=== PATIENT | male | born 1955 | race Caucasian/White ===

== ENCOUNTER 2018-11-04 10:30 | Outpatient (CLI) | payer OTHER ==
[~2018-11-04] VITALS: Ht 177.8 cm; Wt 90.7 kg
[~2018-11-04 10:30] MED LIST: ASP81TEC PO; CALCIUM PO; DICL50TA6 PO; FISH OIL PO; FOLIC ACID PO; GARL200T PO; PRAV40TA PO
[2018-11-04] MEDS ORDERED: PRAV40TA PO (10:56)
== END 2018-11-04 13:21 | disposition home or self-care (01) ==
LOC: PREOP 10:30
PROVIDERS: ATTEND Internal Medicine
DX: Z01.818 Encounter for other preprocedural examination (principal)

== ENCOUNTER 2018-11-07 07:28 | Day surgery (SDC) | payer OTHER ==
--- NOTE | 2018-10-09 17:07 | HISTORY AND PHYSICAL ---
DATE OF SERVICE: COLONOSCOPY HISTORY AND PHYSICAL HISTORY OF PRESENT ILLNESS: The patient is a 63-year-old white male seen for yearly wellness evaluation on 10/08/2018. He has had a past history of colonic adenomas and was due for a screening colonoscopy. He reports last week he had an episode of painless bright red blood per rectum relatively small volume and was not associated with constipation or bowel habit change. He states that he has been feeling well and came in with home blood pressure record since I last saw him over a year ago. He does have a history of significant white coat hypertension, but blood pressure averages remain normal at home over the last 6 months of average 125/84 with an average heart rate of 79. He states that he feels well. He walks at least a mile a day with his dog. During the summer, he bikes and gets more intensive physical therapy predominantly biking, but curtail since during the winter months. He states that he feels well and voices no complaints. PAST MEDICAL HISTORY: Noncontributory other than the personal history of colonic adenomas. Last colonoscopy was in 2014, at which time he had one moderate size flat 5 x 6 mm tubular adenoma removed from the proximal transverse colon. 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 PAST SURGICAL HISTORY: Significant for spinal fusion surgery T10-L3 in 1980 following traumatic back fracture. He had bunion surgery in 1990 and had a benign lymph node biopsy in 1987. FAMILY HISTORY: He is not aware of any family history for GI tract malignancy. PHYSICAL EXAMINATION: GENERAL: Reveals a well-appearing white male, in no acute distress. VITAL SIGNS: Blood pressure per his usual was significantly higher in the office and at home. Initially when he first walked in was 156/110. It was down to 150/98 at the end of the interview. Weight was up 7 pounds from 16 months ago at 213.8. HEENT: Unremarkable. He is a Mallampati class 2 oropharyngeal configuration. NECK: Revealed no JVD, adenopathy or bruits. Sclerae nonicteric. Ear canals are clear with normal TMs. CHEST: Clear to auscultation. CARDIOVASCULAR: Revealed a regular rate and rhythm without murmur, S3 or S4. ABDOMEN: Soft, supple without mass, organomegaly or tenderness. EXTREMITIES: Reveal no cyanosis, clubbing or edema. SKIN: Evaluation reveals no suspicious nevi. RECTAL: Examination was deferred at the time of the procedure. ASSESSMENT AND PLAN: 1. Unremarkable wellness exam with history of white coat hypertension. Continue home monitoring. Home blood pressures have been normal as noted above. Healthy eating and exercise habits. 2. History of colonic adenomas. The patient is set up for screening colonoscopy on 10/24/2018. Prep instructions with the Suprep kit were given and questions answered. We will be calling the patient again for yearly wellness evaluation. Blood tests were obtained including chemistry panel and CBC considering recent bright red blood per rectum. The patient does not wish after discussion to undergo prostate cancer screening/PSA monitoring, other than digital rectal evaluation. Job ID: [id number] DocumentID: [id number] Dictated Date: 10/08/2018 16:17:42 Commercial Lines Account Manager Date: 10/08/2018 17:40:40 Dictated By: DEION CHUN MD MTDD
[~2018-11-07] VITALS: Ht 177.8 cm; Wt 90.7 kg
[2018-11-07] MEDS ORDERED: D5 LR IV SOLUTION 1,000 ML IV ONE (07:35)
--- OUTSIDE RECORDS SUMMARY | 2018-11-07 07:39 | XMS REPORT | Continuity of Care Document ---
Author Author [facility] Organization [facility] Address Unknown Phone Unavailable Allergies Active Description Code Type Severity Reaction Onset Reported/Identified Relationship to Patient Clinical Status Yes No Known Drug Allergies [id number] Drug Allergy Unknown N/A 05/08/2011 Medications There is no data. Problems Date Dx Coded Attending Type Code Diagnosis Diagnosed By 05/08/2011 Ot 211.3 BENIGN NEOPLASM LG BOWEL 05/08/2011 Ot 211.4 BENIGN NEOPL RECTUM/ANUS 05/08/2011 Ot V16.0 FAMILY HX-GI MALIGNANCY 05/08/2011 Ot V18.51 FAMILY HISTORY, COLONIC POLYPS 05/08/2011 Ot V76.51 SCREEN MAL NEOP-COLON 07/08/2012 Ot 211.3 BENIGN NEOPLASM LG BOWEL 07/08/2012 Ot 569.3 RECTAL ANAL HEMORRHAGE 12/31/2014 DEION CHUN MD Ot 211.3 BENIGN NEOPLASM LG BOWEL 12/31/2014 DEION CHUN MD Ot 448.9 CAPILLARY DIS NEC/NOS 12/31/2014 DEION CHUN MD Ot 569.3 RECTAL ANAL HEMORRHAGE 01/04/2015 Ot V72.84 01/04/2015 DEION CHUN MD Ot V72.84 01/04/2015 Ot V72.84 01/04/2015 DEION CHUN MD Ot V72.84 03/21/2015 DEION CHUN MD Ot 724.4 04/15/2015 Ot V72.84 04/15/2015 DEION CHUN MD Ot V72.84 04/15/2015 DEION CHUN MD Ot 724.4 04/26/2015 AUSTIN SHAIKH DO Ot 722.10 04/26/2015 AUSTIN SHAIKH DO Ot V57.1 05/20/2015 AUSTIN SHAIKH DO Ot 722.10 LUMBAR DISC DISPLACEMENT 05/20/2015 AUSTIN SHAIKH DO Ot V57.1 PHYSICAL THERAPY NEC 08/11/2015 Ot V72.84 08/11/2015 ADIEL FERGUSON, DEION Jarrell Ot V72.84 08/11/2015 DEION CHUN MD Ot 724.4 08/21/2016 Ot V72.84 EXAM PRE- OPERATIVE NOS 08/21/2016 ADIEL FERGUSON, DEION Jarrell Ot V72.84 EXAM PRE-OPERATIVE NOS 08/21/2016 ADIEL FERGUSON, DEION Jarrell Ot 724.4 LUMBOSACRAL NEURITIS NOS 08/26/2017 Ot V72.84 EXAM PRE- OPERATIVE NOS 08/26/2017 ADIEL FERGUSON, DEION Jarrell Ot V72.84 EXAM PRE-OPERATIVE NOS 08/26/2017 ADIEL FERGUSON, DEION Jarrell Ot 724.4 LUMBOSACRAL NEURITIS NOS 09/03/2018 ADIEL FERGUSON, DEION Jarrell Ot V72.84 EXAM PRE-OPERATIVE NOS 09/03/2018 ADIEL FERGUSON, DEION Jarrell Ot 724.4 LUMBOSACRAL NEURITIS NOS 10/09/2018 ADIEL FERGUSON, DEION Jarrell Ot V72.84 EXAM PRE-OPERATIVE NOS 10/09/2018 ADIEL FERGUSON, DEION Jarrell Ot 724.4 LUMBOSACRAL NEURITIS NOS 11/04/2018 DEION CHUN MD Ot Z01.818 ENCOUNTER FOR OTHER PREPROCEDURAL EXAMIN 11/04/2018 DEION CHUN MD Ot Z01.818 ENCOUNTER FOR OTHER PREPROCEDURAL EXAMIN Procedures There is no data. Results There is no data. Encounters ACCT No. Visit Date/Time Discharge Status Pt. Type Provider Facility Loc./Unit Complaint [id number] 11/04/2018 10:30:00 11/04/2018 13:21:00 DIS Outpatient DEION CHUN MD [facility] PREOP COLONOSCOPY [id number] 05/09/2015 15:35:00 05/20/2015 14:09:00 DIS Outpatient AUSTIN SHAIKH DO [facility] REHAB LUMBAR RADICULOPATHY;HERNIATED LUMBAR DISC [id number] 02/23/2015 12:07:00 02/23/2015 23:59:59 CLS Outpatient DEION CHUN MD [facility] RAD ACUTE SI RADICULOPATHY, NUMBNESS [id number] 12/31/2014 08:29:00 12/31/2014 11:05:00 DIS Outpatient DEION CHUN MD [facility] SDC RECTAL BLEEDING [id number] 12/29/2014 11:45:00 12/29/2014 23:59:59 CLS Outpatient DEION CHUN MD [facility] PREOP RECTAL BLEEDING [id number] 11/07/2018 07:28:00 ACT Outpatient DEION CHUN MD [facility] ENDO SCREENING [id number] 07/08/2012 07:09:00 Document Registration [id number] 07/07/2012 07:39:00 Document Registration [id number] 05/08/2011 07:35:00 Document Registration
[2018-11-07] MEDS ORDERED: D5 LR IV SOLUTION 1,000 ML IV STA (07:52)
[2018-11-07 07:55] VITALS: BP 133/92
[2018-11-07] MEDS ORDERED: MIDAZOLAM 2 MG/2 ML (VERSED) VIAL ONE ×3 (08:00→08:36)
[2018-11-07] MEDS ORDERED: fentaNYL INJECTION 100 MCG/2 ML AMP IVP ONE (08:00)
[2018-11-07] MEDS ORDERED: LIDOCAINE JELLY 2% 6 ML SYRINGE ONE (08:00)
[2018-11-07] MEDS ORDERED: LIDOCAINE JELLY 2% 6 ML SYRINGE MM PRN (08:00)
[2018-11-07] MEDS ORDERED: MIDAZOLAM 2 MG/2 ML (VERSED) VIAL IVP ONE (08:00)
[2018-11-07] MEDS ORDERED: fentaNYL INJECTION 100 MCG/2 ML AMP ONE (08:00)
--- NOTE | 2018-11-07 08:07 | Pre-Op Note & Conscious Sedat ---
Pre-Operative Progress Note H&P Reviewed The H&P was reviewed, patient examined and no changes noted. Date H&P Reviewed: Nov 07, 2018 Time H&P Reviewed: 08:06 Conscious Sedation Pre-Proced ASA Score 2 For ASA 3 and 4: Consider anesthesia and medical clearance. Also, for patients with a history of failed moderate sedation consider anesthesia. Airway Lungs Heart ASA score ASA 1: a normal healthy patient ASA 2: a patient with a mild systemic disease (mid diabetes, controlled hypertension, obesity ASA 3: a patient with a severe systemic disease that limits activity (angina , COPD, prior Myocardial infarction) ASA 4: a patient with an incapacitating disease that is a constant threat to life (CHF, renal failure) ASA 5: a moribund patient not expected to survive 24 hrs. (ruptured aneurysm) ASA 6: a declared brain- patient whose organs are being harvested. For emergent operations, add the letter E after the classification Mallampati Classification Grade 2 Sedation Plan Analgesia, Amnesia, Plan communicated to team members, Discussed options with patient/fam, Discussed risks with patient/fam The patient is an appropriate candidate to undergo the planned procedure, sedation, and anesthesia. The patient immediately re-assessed prior to indication. DEION CHUN MD Nov 07, 2018 08:07
[2018-11-07 09:10] VITALS: BP 150/70
[2018-11-07 10:06] VITALS: BP 148/89
[2018-11-07 10:07] VITALS: BP 148/89
--- NOTE | 2018-11-07 15:15 | OPERATIVE REPORT ---
DATE OF SERVICE: COLONOSCOPY SUMMARY INDICATION FOR THE PROCEDURE: Colonoscopy was performed due to past history of colon polyps and a family history of second degree relatives with colon cancer. The patient was placed in left lateral decubitus position. Prior to undergoing colonoscopy, digital rectal evaluation was performed. Anal sphincter tone was normal and the perianal reflexes intact. Prostate is mild to moderately enlarged, anodular and nontender on digital inspection. No other abnormalities or no additional inspection of anal canal or distal rectal vault. The colonoscope was then inserted into the rectum under direct visualization, advanced to cecum. The cecum was identified by identification of the ileocecal valve and cecal strap. Photographic documentation was obtained. Careful inspection was made as the colonoscope was withdrawn. FINDINGS: There is no evidence for internal or external hemorrhoids and the rectum, sigmoid colon, descending colon, splenic flexure, transverse colon were unremarkable. A small 3 x 4 mm sessile appearing polyp was noted at the hepatic flexure, was biopsied and ablated, submitted for histopathology with no blood loss. The ascending colon and cecum and the colon were unremarkable. ASSESSMENT: 1. One diminutive polyp was removed from the hepatic flexure. We will await histopathology report before making further surveillance colonoscopic recommendation. 2. Digital evaluation of the prostate was compatible with mild to moderate BPH. No other abnormalities noted on today's procedure. The patient did have concerns that his blood sugar has been creeping up. He does meet criteria for insulin resistance as he has had some fasting sugars several, now above 100, the last one 120. He had also put on some weights. He has medical background and has concerns about progressing diabetes and want to know he is doing everything that he could. We did discuss the importance of diet and exercise, but he would also be a candidate for metformin. We briefly discussed side effects, but I needed to sit down with him in more detail when the medicine had worn off. An extra 10 minutes of time over and above colonoscopy issues was spent in discussing insulin resistance and diabetes. He will schedule an appointment with me sometime in the next month to come in and discuss options in more detail. Job ID: [id number] DocumentID: [id number] Dictated Date: 11/07/2018 10:44:19 Shelter Director Date: 11/07/2018 15:14:55 Dictated By: DEION CHUN MD
== END 2018-11-07 10:28 | disposition home or self-care (01) ==
LOC: ENDO 07:28
PROVIDERS: ATTEND Internal Medicine
DX: Z12.11 Encounter for screening for malignant neoplasm of colon (principal); D12.3 Benign neoplasm of transverse colon; N40.0 Benign prostatic hyperplasia without lower urinary tract symptoms; Z80.0 Family history of malignant neoplasm of digestive organs

== ENCOUNTER 2020-05-13 18:16 | Emergency (ER) | payer MEDICARE, OTHER ==
[~2020-05-13] VITALS: Ht 175 cm; Wt 94.6 kg
[2020-05-13 18:20] VITALS: BP 185/111
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
--- OUTSIDE RECORDS SUMMARY | 2020-05-13 18:21 | XMS REPORT ---
Author Author [employer] [facility] [employer] [facility] [place] Address [address] [address] Care Team Providers Care Entry Manager Name Role Phone AUSTIN SHAIKH Unavailable DEION CHUN Unavailable AUSTIN SHAIKH PCP Unavailable Allergies Allergy Reported Allergen(s) Allergy Type Date of Reaction(s) Care Facility Classificati Onset Provider on Unclassified No Known Drug Allergies DA 05-08-2011 DEION Owusu (18 sources) Available ([id number]) Encounters Encounter Date Encounter Type Encounter Diagnosis Care Provider Facility Start: Admission to day DE[facility] CHUN [place] [facility] 11-07-2018 surgery Work Phone: [facility] ([id number] ) End: 11-07-2018 Start: Patient encounter DEION CHUN MD Not Availa ble ([id number]) 11-07-2018 procedure End: 11-07-2018 Start: Patient encounter DEION CHUN Not Availab le ([id number]) 11-04-2018 procedure End: 11-04-2018 Start: Patient encounter DEION CHUN MD Not Availa ble ([id number]) 10-31-2018 procedure Start: Patient encounter DEION CHUN MD Not Availa ble ([id number]) 10-17-2018 procedure Start: Patient encounter AUSTIN SHAIKH DO Not Avai lable ([id number]) 05-09-2015 procedure End: 05-20-2015 Start: Patient encounter DEION CHUN MD Not Availa ble ([id number]) 02-23-2015 Start: Patient encounter DEION CHUN MD Not Availa ble ([id number]) 12-31-2014 procedure End: 12-31-2014 Start: Patient encounter DEION CHUN MD Not Availa ble ([id number]) 07-08-2012 procedure End: 07-08-2012 Start: Patient encounter DEION CHUN MD Not Availa ble ([id number]) 07-07-2012 NEGATED Pre-operative DEION CHUN MD Not Available ([id number]) examination, unspecified Encounter for other DEION CHUN MD Not Available ([phone]) preprocedural examination Medical Equipment No Information Goals No Information Immunizations Immunizatio Immunization Notes Care Provider Facility n Date vaccine ; AUSTIN SWEANEY [place] [facility] ([id number]) [vaccine] Interventions No Information Medications Medication Drug Dates Sig Sig (Original) Class(es) (Normalized) Aspirin (Aspirin Ec 81 End: Aspirin (Aspir in Ec 81 Mg) 81 Mg Tabec, Mg) 81 Mg Tabec, 81 Mg 12-31-2014 81 Mg Oral Jahaira ly Discontinued Oral (2 sources) Payers No Information Plan of Treatment The data below is from unstructured sources Prescriptions See Medication Section Discharge Date 11/07/18 10:28am Instructions/Education Provided [place] n Polyps (DC) Prescriptions See Medication Section Discharge Date 11/04/18 1:21pm Prescriptions See Medication Section Discharge Date 11/04/18 1:21pm Prescriptions See Medication Section Problems Problem Problem Date Last Documented Episodic/Chr Provider Classificati Recorded Date onic on Gastrointest Hemorrhage of rectum and anus Episodic DEION CHUN inal hemorrhage (4 sources) Hyperplasia Benign prostatic hyperplasia Chronic DEION CHUN of prostate without lower urinary tract MD (1 source) symptoms Other Care involving other physical Episodic AUSTIN aftercare therapy SWEANEY DO (3 sources) Other and Benign neoplasm of transverse colon Episodic DEION CHUN unspecified MD benign neoplasm (1 source) Other and Benign neoplasm of colon Episodic RADHA CHUN unspecified MD benign neoplasm (4 sources) Other Other and unspecified capillary Episodic DEION CHUN circulatory diseases MD disease (3 sources) Other Encounter for screening for Episodic DEION MENDEZON screening malignant neoplasm of colon MD for suspected conditions (not mental disorders or infectious disease) (1 source) Residual Family history of malignant Episodic DEION CHUN codes; neoplasm of digestive organs unclassified (1 source) Spondylosis; 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 SWEANEY DO al disc myelopathy disorders; other back problems (3 sources) Spondylosis; Thoracic or lumbosacral neuritis or Episodic DEION CHUN intervertebr radiculitis, unspecified MD al disc disorders; other back problems (3 sources) Procedures Date Procedure Procedure Detail Performing Cl inician Start: Colonoscopy DEION CHUN 11-07-2018 Results The data below is from unstructured sourcesNo known relevant diagnostic tests, laboratory data and/or discharge summary.No known relevant diagnostic tests, laboratory data and/or discharge summary.No known relevant diagnostic tests, laboratory data and/or discharge summary.No relevant diagnostic test, laboratory data and/or discharge summary information availab le.No relevant diagnostic test, laboratory data and/or discharge summary informa tion available.No relevant diagnostic test, laboratory data and/or discharge sum glenna information available.No relevant diagnostic test, laboratory data and/or d ischarge summary information available. Social History No Information Vital Signs The data below is from unstructured sources Vital Response Date/Time Temperature (Fahrenheit) 97.4 degree s F (97.6 - 99.5) Temperature (Calculated Celsius) 36. 53553 degrees C (36.4 - 37.5) Temperature Source Tympanic Pulse Rate (adult) 76 bpm (60 - 90) Respiratory Rate 18 bpm (12 - 24) O2 Sat by Pulse Oximetry 94 % (88 - 100) Blood Pressure 132/88 mm Hg Pain Pain Intensity 0 Height (Feet) 5 feet Height (Inches) 10.00 inches Height (Calculated Centimeters) 177. 834672 cm Weight (Pounds) 200 pounds Weight (Calculated Grams) 79836.475 gm Weight (Calculated Kilograms) 90.718 475 kilograms Calculated BMI 28.69 Vital Response Date/Time Temperature (Fahrenheit) 97.5 degree s F (97.6 - 99.5) 11/07/2018 10:07am Temperature (Calculated Celsius) 36. 60302 degrees C (36.4 - 37.5) 11/07/2018 10:07am Temperature Source Tympanic 11/07/2018 10:07am Pulse Rate (adult) 100 bpm (60 - 90) 11/07/2018 10:07am Respiratory Rate 20 bpm (12 - 24) 11/07/2018 10:07am O2 Sat by Pulse Oximetry 99 % (88 - 100) 11/07/2018 10:07am Blood Pressure 148/89 mm Hg 11/07/2018 10:07am Blood Pressure Mean 106 mm Hg (65 - 110) 11/07/2018 7:55am Pain Numeric Pain Scale 0-No Pain 11/07/2018 10:07am Pain Intensity 0 2018 10:06am Height (Feet) 5 feet 10/2018 7:58am Height (Inches) 10.00 inches 11/07/2018 7:58am Height (Calculated Centimeters) 177. 989183 cm 11/07/2018 7:58am Weight (Pounds) 200 pounds 11/07/2018 7:58am Weight (Ounces) 0.0 oz 0 11/07/2018 7:58am Weight (Calculated Grams) 64663.48 gm 11/07/2018 7:58am Weight (Calculated Kilograms) 90.718 475 kilograms 11/07/2018 7:58am Calculated BMI 28.7 0210/2018 7:58am Vital Response Date/Time Height (Feet) 5 feet 10:49am Height (Inches) 10.00 inches 11/04/2018 10:49am Height (Calculated Centimeters) 177. 544001 cm 11/04/2018 10:49am Weight (Pounds) 200 pounds 11/04/2018 10:49am Weight (Ounces) 0.0 oz 0 11/04/2018 10:49am Weight (Calculated Grams) 37081.48 gm 11/04/2018 10:49am Weight (Calculated Kilograms) 90.718 475 kilograms 11/04/2018 10:49am Calculated BMI 28.7 10/08 10:49am Vital Response Date/Time Height (Feet) 5 feet 10:49am Height (Inches) 10.00 inches 11/04/2018 10:49am Height (Calculated Centimeters) 177. 489864 cm 11/04/2018 10:49am Weight (Pounds) 200 pounds 11/04/2018 10:49am Weight (Ounces) 0.0 oz 0 11/04/2018 10:49am Weight (Calculated Grams) 72567.48 gm 11/04/2018 10:49am Weight (Calculated Kilograms) 90.718 475 kilograms 11/04/2018 10:49am Calculated BMI 28.7 10/08 10:49am Functional Status The data below is from unstructured sourcesNo functional status results.No functional status results.No functional status results.No functional status information available.No functional status information available.No functional status information available.No functional status inf ormation available. Mental Status No Information Advance Directives Directive Response Recor ded Date/Time Advance Directives No 9:12am Health Care Power of Tailings Worker No 12/31/14 9:12am Organ Donor Yes 12/31/14 9:12am Directive Response Recor ded Date/Time Advance Directives No 9:12am Health Care Power of Tailings Worker No 12/31/14 9:12am Organ Donor Yes 12/31/14 9:12am Resuscitation Status Full Code 12/31/14 9:12am Directive Response Recor ded Date/Time Advance Directives Yes 0 11/07/18 7:55am Health Care Power of Tailings Worker Yes 11/07/18 7:55am Organ Donor Yes 11/07/18 7:55am Resuscitation Status Full Code 11/07/18 7:55am Directive Response Recor ded Date/Time Advance Directives Yes 0 11/04/18 10:54am Health Care Power of Tailings Worker Yes 11/04/18 10:54am Organ Donor Yes 12/31/14 9:12am Resuscitation Status Full Code 11/04/18 10:54am Discharge Instructions No hospital discharge instructions.No hospital discharge instructions.No hospital discharge instruction information available.No hospital discharge instruction information available. Additional Source Comments This clinical document has been generated using [employer] software that has been certified by the Office of the National Coordinator for Health Information Technology (ONC 15.99.04.3023.Diam.31.00.0.860242) and the National Committee for Foundation Drill Operator (NCQA, as an eMeasure certified technology). FOR RECORDS PERTAINING TO PATIENTS WHO ARE OR HAVE BEEN ENROLLED IN A CHEMICAL D EPENDENCY/SUBSTANCE ABUSE PROGRAM, SOME INFORMATION MAY BE OMITTED. This clinica l summary was aggregated from multiple sources. Caution should be exercised in using it in the provision of clinical care. This summary normalizes information from multiple sources, and as a consequence, information in this document may ma terially change the coding, format and clinical context of patient data. In sheila tion, data may be omitted in some cases. CLINICAL DECISIONS SHOULD BE BASED ON T HE PRIMARY CLINICAL RECORDS. [facility], [facility]. provides no warranty or guara ntee of the accuracy or completeness of information in this document.The followi ng information is based on time limited clinical information
--- OUTSIDE RECORDS SUMMARY | 2020-05-13 18:21 | XMS REPORT | Continuity of Care Document ---
Author Organization Unknown Address Unknown Phone Unavailable Allergies Active Description Code Type Severity Reaction Onset Reported/Identified Relationship to Patient Clinical Status Yes No Known Drug Allergies [id number] Drug Allergy Unknown N/A 05/08/2011 Medications There is no data. 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 3 BENIGN NEOPLASM LG BOWEL 12/31/2014 DEION CHUN MD Ot 448. 9 CAPILLARY DIS NEC/NOS 12/31/2014 DEION CHUN MD Ot 569. 3 RECTAL ANAL HEMORRHAGE 01/04/2015 Ot V72.84 01/04/2015 DEION CHUN MD Ot V72. 84 01/04/2015 Ot V72.84 01/04/2015 DEION CHUN MD Ot V72. 84 03/21/2015 DEION CHUN MD Ot 724. 4 04/15/2015 Ot V72.84 04/15/2015 DEION CHUN MD Ot V72. 84 04/15/2015 DEION CHUN MD Ot 724. 4 04/26/2015 AUSTIN SHAIKH DO Ot 722.10 04/26/2015 AUSTIN SHAIKH DO Ot V57.1 05/20/2015 AUSTIN SHAIKH DO Ot 722.10 LUMBAR DISC DISPLACEMENT 05/20/2015 AUSTIN SHAIKH DO Ot V57.1 PHYSICAL THERAPY NEC 08/11/2015 Ot V72.84 08/11/2015 ADIEL FERGUSON, DEION Jarrell Ot V72. 84 08/11/2015 ADIEL FERGUSON, DEION Jarrell Ot 724. 4 08/21/2016 Ot V72.84 EXA M PRE- OPERATIVE NOS 08/21/2016 ADIEL FERGUSON, DEION Jarrell Ot V72. 84 EXAM PRE-OPERATIVE NOS 08/21/2016 ADIEL FERGUSON, DEION Jarrell Ot 724. 4 LUMBOSACRAL NEURITIS NOS 08/26/2017 Ot V72.84 EXA M PRE- OPERATIVE NOS 08/26/2017 ADIEL FERGUSON, DEION Jarrell Ot V72. 84 EXAM PRE-OPERATIVE NOS 08/26/2017 ADIEL FERGUSON, DEION Jarrell Ot 724. 4 LUMBOSACRAL NEURITIS NOS 09/03/2018 ADIEL FERGUSON, DEION Jarrell Ot V72. 84 EXAM PRE-OPERATIVE NOS 09/03/2018 ADIEL FERGUSON, DEION Jarrell Ot 724. 4 LUMBOSACRAL NEURITIS NOS 10/09/2018 ADIEL FERGUSON, DEION Jarrell Ot V72. 84 EXAM PRE-OPERATIVE NOS 10/09/2018 ADIEL FERGUSON, DEION Jarrell Ot 724. 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 0 BENIGN PROSTATIC HYPERPLASIA WITHOUT LOW 11/07/2018 DEION CHUN MD Ot Z12. 11 ENCOUNTER FOR SCREENING FOR MALIGNANT NE 11/07/2018 DEION CHUN MD Ot Z80. 0 FAMILY HISTORY OF MALIGNANT NEOPLASM OF Procedures There is no data. Results There is no data. Encounters ACCT No. Visit Date/Time Discharge Status Pt. Type Provider Facility Loc./Unit Complaint [id number] 11/07/2018 07:28:00 019 10:28:00 DIS Outpatient DEION CHUN MD [facility] ENDO SCREENING [id number] 11/04/2018 10:30:00 019 13:21:00 DIS Outpatient DEION CHUN MD [facility] PREOP COLONOSCOPY [id number] 05/09/2015 15:35:00 015 14:09:00 DIS Outpatient AUSTIN SHAIKH DO [facility] REHAB LUMBAR RADICULOPATHY;HE RNIATED LUMBAR DISC [id number] 02/23/2015 12:07:00 015 23:59:59 CLS Outpatient DEION CHUN MD [facility] RAD ACUTE SI RADICULOPATHY, NUMBNESS [id number] 12/31/2014 08:29:00 015 11:05:00 DIS Outpatient DEION CHUN MD [facility] SDC RECTAL BLEEDING [id number] 12/29/2014 11:45:00 015 23:59:59 CLS Outpatient DEION CHUN MD [facility] PREOP RECTAL BLEEDING [id number] 05/13/2020 18:17:[address] Emergency PERCY VIEIRA MD [facility] ER DOG SCRATCH - L LEG [id number] 07/08/2012 07:09:00 Document Registration [id number] 07/07/2012 07:39:00 Document Registration [id number] 05/08/2011 07:35:00 Document Registration
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
== END 2020-05-13 18:54 | disposition home or self-care (01) ==
LOC: EDUNIT# 18:16 → ER 18:17
DX: S80.812A Abrasion, left lower leg, initial encounter (principal); E78.00 Pure hypercholesterolemia, unspecified; Z85.828 Personal history of other malignant neoplasm of skin; W54.8XXA Other contact with dog, initial encounter

== ENCOUNTER 2020-10-25 18:26 | Emergency (ER) | payer MEDICARE, OTHER ==
[~2020-10-25] VITALS: Ht 175.3 cm; Wt 92.9 kg
[2020-10-25] MEDS ORDERED: ADENOSINE 6 MG/2 ML (ADENOCARD) VIAL IV ONE ×3 (18:38→19:00)
[2020-10-25] MEDS ORDERED: dilTIAZem DRIP PRE-MIX 125 ML IV ONE (18:42)
[2020-10-25 18:56] LABS: BASOPHILS % (AUTO) 0 % (0-10); EOSINOPHILS # (AUTO) 0.1 10^3/uL (0.0-0.3); EOSINOPHILS % (AUTO) 1 % (0-10); HEMATOCRIT 46 % (40-54); HEMOGLOBIN 14.4 g/dL (13.3-17.7); LYMPHOCYTES # (AUTO) 2.9 10^3/uL (1.0-4.0); LYMPHOCYTES % (AUTO) 41 % (12-44); MEAN CORPUSCULAR HEMOGLOBIN 25 pg (25-34); MEAN CORPUSCULAR HGB CONC 32 g/dL (32-36); MEAN CORPUSCULAR VOLUME 80 fL (80-99); MEAN PLATELET VOLUME 11.3 fL (9.0-12.2); MONOCYTES # (AUTO) 0.7 10^3/uL (0.0-1.0); MONOCYTES % (AUTO) 10 % (0-12); NEUTROPHILS # (AUTO) 3.4 10^3/uL (1.8-7.8); NEUTROPHILS % (AUTO) 49 % (42-75); PLATELET COUNT 210 10^3/uL (130-400)
--- NOTE | 2020-10-25 18:57 | ED Cardiac General ---
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 Over the past few weeks he has had some episodes of palpitations and irregular heartbeat. No known history of arrhythmia. Timing/Duration: changing over time Severity: moderate Activities at Onset: none Prior CP/Workup: no prior chest pain NTG SL OTR OWNER OPERATOR: No ASA po OTR OWNER OPERATOR: No Allergies and Home Medications Allergies Coded Allergies: No Known Drug Allergies (Unverified , 05/08/11) Home Medications Pravastatin Sodium 40 Mg Tablet, 40 MG PO DAILY, (Reported) Patient Home Medication List Home Medication List Reviewed: Yes Review of Systems Review of Systems Constitutional: see HPI EENTM: No Symptoms Reported Respiratory: No Symptoms Reported Cardiovascular: See HPI; Denies Chest Pain; Irregular Heart Rate, Palpitations Gastrointestinal: No Symptoms Reported Genitourinary: No Symptoms Reported Musculoskeletal: no symptoms reported Skin: no symptoms reported Psychiatric/Neurological: No Symptoms Reported Endocrine: No Symptoms Reported Past Wlzwlpm-Uttbez-Gmphxp Hx Patient Social History Alcohol Use: Occasionally Uses Smoking Status: Never a Smoker Recent Hopitalizations: No Immunizations Up To Date Tetanus Booster (TDap): Unknown PED Vaccines UTD: Yes Date of Influenza Vaccine: Jul 14, 2018 Seasonal Allergies Seasonal Allergies: No Past Medical History Surgeries: Yes (BACK, CARPAL TUNNEL BILAT) Respiratory: No Cardiac: Yes High Cholesterol Neurological: No Sexually Transmitted Disease: No HIV/AIDS: No Genitourinary: No Gastrointestinal: Yes Polyps Musculoskeletal: Yes (ARTHRITIS; FEET) Arthritis Endocrine: No HEENT: Yes (GLASSES) Loss of Vision: Bilateral Hearing Impairment: Hard of Hearing, Bilateral Hearing Aide Cancer: Yes (BASAL CELL) Skin Psychosocial: No Integumentary: No Blood Disorders: No Adverse Reaction/Blood Tranf: No (HAS HAD BLOOD WITH NO REACTION) Physical Exam Vital Signs Vital Signs - First Documented 10/25/20 18:34 Pulse 154 Resp 20 B/P (MAP) 184/111 (135) Pulse Ox 99 O2 Delivery Room Air Capillary Refill : Less Than 3 Seconds Height, Weight, BMI Height: 5'10.00" Weight: 200lbs. 0.0oz. [id number]; 30.00 BMI Method: General Appearance: No Apparent Distress, WD/WN Respiratory: No Accessory Muscle Use, No Respiratory Distress Cardiovascular: Irregularly Irregular, Tachycardia (Narrow complex tachycardia irregularly irregular rate of 150-160.) Gastrointestinal: Non Tender, Soft Extremity: Normal Capillary Refill, Normal Inspection Neurologic/Psychiatric: Alert, Oriented x3 Skin: Normal Color, Warm/Dry Progress/Results/Core Measures Results/Orders Lab Results Laboratory Tests Test 10/25/20 18:42 Range/Units White Blood Count 7.0 4.3-11.0 10^3/uL Red Blood Count 5.70 H 4.30-5.52 10^6/uL Hemoglobin 14.4 13.3-17.7 g/dL Hematocrit 46 40-54 % Mean Corpuscular Volume 80 80-99 fL Mean Corpuscular Hemoglobin 25 25-34 pg Mean Corpuscular Hemoglobin Concent 32 32-36 g/dL Red Cell Distribution Width 14.9 H 10.0-14.5 % Platelet Count 210 130-400 10^3/uL Mean Platelet Volume 11.3 9.0-12.2 fL Immature Granulocyte % (Auto) 0 % Neutrophils (%) (Auto) 49 42-75 % Lymphocytes (%) (Auto) 41 12-44 % Monocytes (%) (Auto) 10 0-12 % Eosinophils (%) (Auto) 1 0-10 % Basophils (%) (Auto) 0 0-10 % Neutrophils # (Auto) 3.4 1.8-7.8 10^3/uL Lymphocytes # (Auto) 2.9 1.0-4.0 10^3/uL Monocytes # (Auto) 0.7 0.0-1.0 10^3/uL Eosinophils # (Auto) 0.1 0.0-0.3 10^3/uL Basophils # (Auto) 0.0 0.0-0.1 10^3/uL Immature Granulocyte # (Auto) 0.0 0.0-0.1 10^3/uL Prothrombin Time 13.4 12.2-14.7 SEC INR Comment 1.0 0.8-1.4 Activated Partial Thromboplast Time 27 24-35 SEC Sodium Level 138 135-145 MMOL/L Potassium Level 3.8 3.6-5.0 MMOL/L Chloride Level 104 98-107 MMOL/L Carbon Dioxide Level 24 21-32 MMOL/L Anion Gap 10 5-14 MMOL/L Blood Urea Nitrogen 13 7-18 MG/DL Creatinine 1.18 0.60-1.30 MG/DL Estimat Glomerular Filtration Rate > 60 BUN/Creatinine Ratio 11 Glucose Level 129 H 70-105 MG/DL Calcium Level 9.2 8.5-10.1 MG/DL Corrected Calcium 8.8 8.5-10.1 MG/DL Magnesium Level 2.3 1.6-2.4 MG/DL Total Bilirubin 0.6 0.1-1.0 MG/DL Aspartate Amino Transf (AST/SGOT) 23 5-34 U/L Alanine Aminotransferase (ALT/SGPT) 28 0-55 U/L Alkaline Phosphatase 67 40-136 U/L Myoglobin 52.2 10.0-92.0 NG/ML Troponin I < 0.028 <0.028 NG/ML Total Protein 7.5 6.4-8.2 GM/DL Albumin 4.5 3.2-4.5 GM/DL My Orders Orders - JAIMIE FREY MOBILE UNIT ASSISTANT Cbc With Automated Diff (10/25/20 18:48) Magnesium (10/25/20 18:48) Chest 1 View, Ap/Pa Only (10/25/20 18:48) Ekg Tracing (10/25/20 18:48) Comprehensive Metabolic Panel (10/25/20 18:48) Myoglobin Serum (10/25/20 18:48) Protime With Inr (10/25/20 18:48) Partial Thromboplastin Time (10/25/20 18:48) O2 (10/25/20 18:48) Monitor-Rhythm Ecg Trace Only (10/25/20 18:48) Lipid Panel (10/26/20 06:00) Ed Iv/Invasive Line Start (10/25/20 18:48) Aspirin Chewable Tablet (Baby Aspirin Ch (10/25/20 19:00) Apixaban Tablet (Eliquis Tablet) (10/25/20 19:00) Diltiazem Injection (Cardizem Injection) (10/25/20 19:00) Diltiazem Drip Pre-Mix (Cardizem Drip Pr (10/25/20 19:00) Troponin I (10/25/20 18:42) Adenosine Injection (Adenocard Injection (10/25/20 19:00) Ns Iv 1000 Ml (Sodium Chloride 0.9%) (10/25/20 19:45) Medications Given in ED Current Medications Medications Dose Ordered Sig/Swati Route Start Time Stop Time Status Last Admin Dose Admin Adenosine 6 mg ONCE ONCE IV 10/25/20 19:00 10/25/20 19:01 DC 10/25/20 18:44 6 MG Apixaban 5 mg ONCE ONCE PO 10/25/20 19:00 10/25/20 19:01 DC 10/25/20 19:16 5 MG Aspirin 324 mg ONCE ONCE PO 10/25/20 19:00 10/25/20 19:01 DC 10/25/20 19:17 324 MG Diltiazem HCl 10 mg ONCE ONCE IVP 10/25/20 19:00 10/25/20 19:01 DC 10/25/20 18:47 10 MG Vital Signs/I&O 10/25/20 18:34 Pulse 154 Resp 20 B/P (MAP) 184/111 (135) Pulse Ox 99 O2 Delivery Room Air Departure Communication (Admissions) With Dr. Sullivan and Dr. Espitia. We have no ICU beds available at this time so we will keep the patient here in the emergency room until a bed opens up. Currently Cardizem drip is at 15 mg an hour he has received 5 mg of Eliquis and 324 mg of aspirin. He is without chest pain or shortness of breath. Impression Primary Impression: New onset atrial fibrillation Additional Impression: Atrial fibrillation with RVR Disposition: HOME, SELF-CARE Condition: Stable Departure-Patient Inst. Referrals: DEION CHUN MD (PCP/Family) Primary Care Physician JAIMIE FREY APRN Oct 25, 2020 18:57
[2020-10-25] MEDS ORDERED: dilTIAZem DRIP PRE-MIX 125 ML IV SCH (19:00)
[2020-10-25] MEDS ORDERED: APIXABAN 5 MG (ELIQUIS) TABLET PO ONE (19:00)
[2020-10-25] MEDS ORDERED: ASPIRIN 81 MG CHEW (CHILDREN'S ASA) PO ONE (19:00)
[2020-10-25 19:01] LABS: ALBUMIN 4.5 GM/DL (3.2-4.5); CHLORIDE 104 MMOL/L (98-107); POTASSIUM 3.8 MMOL/L (3.6-5.0); PROTHROMBIN TIME PATIENT 13.4 SEC (12.2-14.7); SODIUM 138 MMOL/L (135-145)
[2020-10-25 19:02] LABS: CALCIUM 9.2 MG/DL (8.5-10.1)
[2020-10-25 19:03] LABS: GLUCOSE 129 MG/DL (70-105); TOTAL PROTEIN 7.5 GM/DL (6.4-8.2)
[2020-10-25 19:04] LABS: CARBON DIOXIDE 24 MMOL/L (21-32)
[2020-10-25 19:05] LABS: BILIRUBIN,TOTAL 0.6 MG/DL (0.1-1.0)
[2020-10-25 19:06] LABS: ALKALINE PHOSPHATASE 67 U/L (40-136)
[2020-10-25 19:07] LABS: CREATININE SERUM 1.18 MG/DL (0.60-1.30); GFR ESTIMATED > 60
[2020-10-25 19:08] LABS: BUN/CREATININE RATIO 11
[2020-10-25 19:09] LABS: ALANINE AMINOTRANSFERASE 28 U/L (0-55); MAGNESIUM 2.3 MG/DL (1.6-2.4)
--- NOTE | 2020-10-25 19:17 | Diagnostic Imaging Report ---
INDICATION: Tachycardia. Denies history of atrial fibrillation or SVT. Denies chest pain. FINDINGS: Frontal view of the chest demonstrates the lungs to be clear. The heart, mediastinum and pulmonary vascularity are normal. Postoperative changes are present to the spine. IMPRESSION: There are no acute findings. Dictated by: Dictated on workstation # [id number]
--- NOTE | 2020-10-25 19:42 | NUR ---
PT TO HOLD IN ER NO ICU BEDS AVAILABLE UNTIL POSSIBLY MORNING. ER CART EXCHANGED FOR INPATIENT BED AND PT PROVIDED ANIBAL LUIS.
[2020-10-25] MEDS ORDERED: NS IV 1000 ML 1,000 ML IV SCH (19:45)
--- NOTE | 2020-10-25 20:31 | NUR ---
HR DECREASED AND NOTED TO APPEAR TO BE IN NSR/ST ON BEDSIDE MONITOR. Radha FREY APRN NOTIFIED AND EKG OBTAINED.
[2020-10-25] MEDS ORDERED: dilTIAZem120 MG (CARDIZEM CD) CAP PO SCH ×2 (20:45→21:15)
[2020-10-25] MEDS ORDERED: APIX5TAB PO (22:05)
[2020-10-25] MEDS ORDERED: DILT240C90 PO (22:05)
[2020-10-25 22:11] VITALS: BP 139/82
[2020-10-26] MEDS ORDERED: dilTIAZem120 MG (CARDIZEM CD) CAP PO SCH (09:00)
== END 2020-10-25 22:11 | disposition home or self-care (01) ==
LOC: EDUNIT# 18:26 → ER 18:28
DX: I48.20 Chronic atrial fibrillation, unspecified (principal); E78.00 Pure hypercholesterolemia, unspecified; Z85.828 Personal history of other malignant neoplasm of skin
CPT/HCPCS: 36415; 71045; 80053; 83735; 83874; 84484; 85025; 85610; 85730; 93005; 93041

== ENCOUNTER → 2020-11-01 | Outpatient (CLI) | payer MEDICARE, OTHER ==
[~2020-11-01] VITALS: Ht 175 cm; Wt 94.0 kg
[~2020-11-01] MED LIST changes: +APIX5TAB PO; +DILT240C90 PO; +REGADENOSON 0.4 MG/5 ML SYR (LEXISCAN) IV ONE
[2020-11-01] MEDS: CATHETER FLUSH 10 ML SYR IV PRN ×2 (08:30→09:29)
[2020-11-01 09:21] VITALS: BP 161/102
--- NOTE | 2020-11-01 16:09 | STRESS TEST ---
DATE OF SERVICE: 11/01/2020 RESTING AND POST REGADENOSON TECHNETIUM-99M TETROFOSMIN SPECT CT IMAGING ORDERING PHYSICIAN: Dr. Vigil. PRIMARY PHYSICIAN: Dr. Ortega. CLINICAL DIAGNOSIS: Palpitations. FINDINGS: Baseline images were carried out after injection of 10 mCi of technetium-99m Tetrofosmin. This was followed by 0.4 mg Regadenoson and 30 mCi of technetium-99 Tetrofosmin for stress imaging. The electrocardiogram showed sinus rhythm at baseline. It did not change significantly with the Regadenoson infusion. Review of images at rest and following stress does not indicate any distinct perfusion defects with significant myocardial ischemia or infarction. Some degree of diaphragmatic attenuation was seen both at rest and following Regadenoson infusion. Gated images show normal global left ventricular systolic function with normal regional wall motion, including the diaphragmatic wall of the left ventricle. Left ventricular ejection fraction is calculated to be 79%. Left ventricular end diastolic volume is 62 mL. TID is absent (1.05). CONCLUSIONS: 1. No evidence of significant myocardial ischemia or infarction on this study. 2. Normal regional wall motion. 3. Normal to hyperdynamic left ventricular systolic function with an ejection fraction of . Job ID: [id number] DocumentID: [id number] Dictated Date: 11/01/2020 13:49:41 Animal Rehabilitator Date: 11/01/2020 16:08:24 Dictated By: KESHAV VIGIL MD, MA, FACP, FACC,
== END ==
LOC: CARD 08:30
PROVIDERS: ATTEND Internal Medicine Cardiovascular Disease
DX: R00.2 Palpitations (principal)
CPT/HCPCS: 78452; 93017; A9502

== ENCOUNTER → 2020-11-03 | Outpatient (CLI) | payer MEDICARE, OTHER ==
[~2020-11-03] MED LIST changes: -REGADENOSON 0.4 MG/5 ML SYR (LEXISCAN) IV ONE
== END ==
LOC: CARD 09:00
PROVIDERS: ATTEND Internal Medicine Cardiovascular Disease
DX: R00.2 Palpitations (principal)
CPT/HCPCS: 93306

== ENCOUNTER → 2022-05-07 | Outpatient (CLI) | payer MEDICARE, OTHER ==
--- NOTE | 2022-05-07 10:31 | Diagnostic Imaging Report ---
PROCEDURE: MRI left joint lower extremity without contrast. TECHNIQUE: Multiplanar, multisequence non contrast-enhanced MRI of the left lower extremity was accomplished. INDICATION: Left hip pain, possible contusion. EXAMINATion: Left lower extremity MRI without contrast 05/07/2022. FINDINGS: There is diffuse abnormal signal intensity with T2 hyperintensity noted throughout the left sacral alar. A superimposed vertical hypointense line on both T1 and T2-weighted imaging consistent with an insufficiency fracture. A nonspecific area of hypointensity is seen centered along the adjacent left sacroiliac joint extending into the ilium which is diffusely hypointense on T1 and T2-weighted imaging. Focal sclerosis is possible but CT imaging could provide better characterization. Additionally, there is diffuse edema throughout the left superior and inferior pubic rami extending to the anterior left acetabulum. Findings likely due to underlying fractures. Surrounding soft tissue edema is noted. There is diffuse linear edema within the abductor musculature on the left. This is likely reactive muscular strain. Within the remaining osseous structures degenerative changes noted within the visualized lumbar spine. The hip joint spaces intact and symmetric with no significant joint effusions appreciated. The hamstrings tendon origins bilaterally intact. Tendinous insertion at the greater trochanter appears intact. Minimal adjacent edema is noted within the distal lateral luteal musculature likely due to a strain with similar findings to lesser degree noted on the opposite side predominantly involving the gluteus medius musculature. The iliopsoas tendons and muscles unremarkable as visualized. The tendinous insertion at the greater trochanter on the left intact. The visualized intrapelvic structures demonstrate no acute abnormality. There is wall thickening of the urinary bladder most likely due to incomplete distention although cystitis could cause a similar appearance. IMPRESSION: 1. Suspected sacral insufficiency fracture in the left sacra ala with fractures of the left superior and inferior pubic rami also noted. Nonspecific possible sclerosis in the left SI joint region. CT imaging could provide better characterization of all these findings as clinically indicated. 2. Edema within the left abductor musculature and within the lateral inferior border of the gluteus medius musculature bilaterally. This is most likely due to muscular strain. Other findings as above. Faxed to [facility] at 10:29 a.m. by dannie. Dictated by: Dictated on workstation # [id number]
== END ==
LOC: RAD 08:45
PROVIDERS: ATTEND Nurse Practitioner
DX: S70.02XA Contusion of left hip, initial encounter (principal); X58.XXXA Exposure to other specified factors, initial encounter
CPT/HCPCS: 73721